=== PATIENT | female | born 1955 ===

== ENCOUNTER 2023-08-29 14:48 | Inpatient (IN) | payer OTHER, MEDICARE ==
[~2023-08-29] VITALS: Wt 88.6 kg
[2023-08-29 15:25] VITALS: BP 161/93; PULSE 97
--- NOTE | 2023-08-29 15:30 | NUR ---
kylie arrived from [facility] awake and alert, sitting up in bed. patient stated the 4mg of morphine (didnt do anything). per patinet she is alergic to "many things" however can take (demerol and fentanyl for pain. Patient states she is having abd pain and does not think she is getting enough ivf. per patient she belives she needs to have an increase in ivf and also needs someting to drink. this rn informed salomon if she allowed the ngtube to be placed it could help decompress her stomach and help with her pain, the patient stated (i know how it works and i dont want that those tubes hurt. patient vss. [facility]
[2023-08-29] MEDS ORDERED: NS 1,000 ML IV SCH (15:45)
[2023-08-29] MEDS ORDERED: Ondansetron 4 MG/2 ML VIAL IV PRN (15:45)
[2023-08-29] MEDS ORDERED: Morphine 4 MG/ML VIAL IV PRN (16:00)
[2023-08-29] MEDS ORDERED: fentaNYL 50 MCG/ML 2 ML VIAL IV PRN (16:00)
[2023-08-29] MEDS ORDERED: Glucagon 1 MG VIAL IM PRN (17:00)
[2023-08-29] MEDS ORDERED: Dextrose 50% Water 25 GM/50 ML SYRINGE IV PRN (17:00)
[2023-08-29] MEDS ORDERED: NS 1,000 ML IV ONE (17:00)
[2023-08-29] MEDS ORDERED: Dextrose (Glucose) 15 GM (4 x 3.75 GM) Chewable TABLET PACK PO PRN (17:00)
[2023-08-29 17:24] LABS: BASO % 0.3 % (0.0-2.0); EOS % 0.2 % (0.0-4.0); GRAN # 12.2 K/mm3 (1.4-6.5); GRAN % 79.2 % (42.2-75.2); HEMATOCRIT 45.3 % (37.0-47.0); HEMOGLOBIN 14.9 g/dl (12.5-16.0); LYMPH # 1.9 K/mm3 (1.2-3.4); LYMPH % 12.2 % (20.0-51.0); MEAN CELL VOLUME 92 fl (80.0-100.0); MEAN CORPUSCULAR HEMOGLOBIN 30 pg (27-31); MEAN CORPUSCULAR HGB CONC 33 g/dl (33.0-37.0); MEAN PLATELET VOLUME 10.4 fl (7.4-10.4); MONO # 1.2 K/mm3 (0.1-0.6); MONO % 7.7 % (1.7-9.3); PLATELET COUNT 275 K/mm3 (130-400); RED BLOOD COUNT 4.93 M/mm3 (4.10-5.30); REDCELL DISTRIBUTION WIDTH-CV 13.2 % (11.5-14.5)
[2023-08-29 17:40] LABS: ALBUMIN 3.5 g/dL (3.4-4.8); BILIRUBIN,TOTAL 0.6 mg/dL (0.2-1.2); CALCIUM 9.3 mg/dL (8.4-10.2); CREATININE, serum 0.79 mg/dL (0.57-1.11); MAGNESIUM 2.1 mg/dL (1.6-2.6); POTASSIUM 3.7 mEq/L (3.5-4.5); TOTAL PROTEIN 6.6 g/dl (6.2-8.1)
[2023-08-29] MEDS ORDERED: Insulin Lispro (HumaLOG) SQ SCH (18:00)
--- NOTE | 2023-08-29 18:12 | NUR ---
RADIOLOGY CALLED AND INFORMED THE SURGICAL DOCTOR WOULD LIKE THE PATIENTS IMAGING TO BE CLODUDED TO OUR SYSTEM. DISC AT NURSES STAION. PER RADIOLOGY WILL BE DONE SOON ABLE.
[2023-08-29] MEDS ORDERED: CREON 120000 U-1 ECC PO ×2 (18:29→18:30)
[2023-08-29] MEDS ORDERED: ALLEGRA 180MG180 MG PO (18:30)
[2023-08-29] MEDS ORDERED: LOPID 600M600 MG/TAB PO (18:31)
[2023-08-29] MEDS ORDERED: LANTUS SOLOS100 U/ML SQ (18:32)
[2023-08-29] MEDS ORDERED: NOVOLIN N100 UNIT/1 SQ (18:32)
[2023-08-29] MEDS ORDERED: NITROSTAT0.4 MG/TAB SL (18:33)
[2023-08-29] MEDS ORDERED: ROBAXIN 75750 MG/TAB PO (18:33)
[2023-08-29] MEDS ORDERED: DITROPAN 5MG TAB5 MG PO (18:34)
[2023-08-29] MEDS ORDERED: LYRICA 25MG CAP25 MG PO (18:34)
[2023-08-29] MEDS ORDERED: ROXICODONE 55 MG/TAB PO (18:34)
--- NOTE | 2023-08-29 18:38 | NUR ---
PER PATIENT MORPHINE DID 0 FOR HER PAIN. IV FENTANYL ADMINISTERED.
--- NOTE | 2023-08-29 18:38 | NUR ---
EVA MILLER CONTACTED. MED LIST UPDATED
[2023-08-29] MEDS ORDERED: Methocarbamol 750 MG TAB PO PRN (18:45)
[2023-08-29 19:34] VITALS: BP 140/83; PULSE 98; TEMP 99.5
--- NOTE | 2023-08-29 20:30 | NUR ---
UPON SHIFT ASSESSMENT PATIENT IN BED AWAKE AND AXO X4. SHE C/O 8/10 EPIGASTRIC PAIN, PRN FENTANYL GIVEN. BOWEL SOUNDS HYPOACTIVE IN UPPER QUADS AND AUDIBLE IN LOWER QUADS. ABDOMEN SOFT AND DISTENDED. BLLE 3+EDEMA. SHIFT ASSESSMENT COMPLETE. VS ARE WNL. CALL LIGHT WITHIN REACH.
--- NOTE | 2023-08-29 20:45 | NUR ---
14 fr NG TUBE PLACED IN RT NARE AT 55CM PERLA, SECURED. PLACEMENT VERIFIED BY CHARGE NURSE SUNI-AUSCULTATED AIR AND GASTRIC CONTENTS 10ML. SET TO LI SUCTION. PATIENT TOLERATING WELL.
[2023-08-29 21:00] VITALS: BP_SYST 174
[2023-08-29] MEDS ORDERED: Pregabalin 25 MG CAP PO SCH (21:00)
[2023-08-29] MEDS ORDERED: Oxybutynin 5 MG TAB PO SCH (21:00)
[2023-08-29 23:00] VITALS: BP 174/98; PULSE 96; TEMP 98.5
[2023-08-30] VITALS (13 sets, daily range): BP systolic 108–174; BP diastolic 63–96; PULSE 87–104; TEMP 98.4–99.3
--- NOTE | 2023-08-30 02:17 | NUR ---
PATIENT C/O 8/10 ABDOMINAL PAIN AND NAUSEA. PRN FENTANYL AND ZOFRAN ADMINISTERED.
--- NOTE | 2023-08-30 03:44 | NUR ---
ROUNDED ON PATIENT. RAINA IS SLEEPING ON RT SIDE. NG TUBE INTACT. VS ARE WNL.
--- NOTE | 2023-08-30 04:47 | NUR ---
PATIENT REQUESTING PAIN MEDS AND ANTI EMETICS OUTSIDE OF PRN AVAILABLE TIMES (EVERY 1-2HRS). VS ARE STABLE, ABDOMEN IN SOFT AND PATIENT IS PASSING GAS. NG TUBE DRAINING MARQUEZ CONTENTS. PATIENT EDUCATION PROVIDED ON RESPIRATORY DISTRESS AND COPIOUS OPIOD ADMINISTERATION. COMPAZINE ADMINISTERED.
--- NOTE | 2023-08-30 05:25 | NUR ---
PATIENT ALLERGY LIST UPDATED. RAINA SELF REPORTS NUMEROUS ALLERGIES/ADVERSE REACTIONS, HOWEVER, CANNOT RECALL SEVERITY OF REACTIONS.
[2023-08-30 06:06] LABS: BASO % 0.2 % (0.0-2.0); EOS % 0.1 % (0.0-4.0); GRAN # 10.7 K/mm3 (1.4-6.5); GRAN % 83.6 % (42.2-75.2); HEMATOCRIT 42.8 % (37.0-47.0); HEMOGLOBIN 14.4 g/dl (12.5-16.0); LYMPH # 1.2 K/mm3 (1.2-3.4); LYMPH % 9.2 % (20.0-51.0); MEAN CELL VOLUME 92 fl (80.0-100.0); MEAN CORPUSCULAR HEMOGLOBIN 31 pg (27-31); MEAN CORPUSCULAR HGB CONC 34 g/dl (33.0-37.0); MEAN PLATELET VOLUME 10.6 fl (7.4-10.4); MONO # 0.8 K/mm3 (0.1-0.6); MONO % 6.5 % (1.7-9.3); PLATELET COUNT 259 K/mm3 (130-400); RED BLOOD COUNT 4.66 M/mm3 (4.10-5.30)
[2023-08-30 06:35] LABS: CALCIUM 8.9 mg/dL (8.4-10.2); CREATININE, serum 0.66 mg/dL (0.57-1.11); POTASSIUM 3.2 mEq/L (3.5-4.5)
[2023-08-30] MEDS ORDERED: NS & 40 mEq KCl 1,000 ML IV SCH (08:45)
--- NOTE | 2023-08-30 09:14 | NUR ---
Patient resting in bed, up to the bathroom to void, steady on her feet. Called out for nausea and pain medication this am. Reports passing flatus at least x1. No active emesis, but is dry heaving especially with activity. Pain in upper abdomen, reported at 8/10. PRETTY to LIS. WHALEN completed this am. PT wroked with patient. LEGAL COUNSEL offered hygiene as did this nurse and was refused. Will continue to monitor
[2023-08-30] MEDS ORDERED: Morphine 4 MG/ML VIAL IV PRN (09:45)
[2023-08-30] MEDS ORDERED: Morphine 4 MG/ML VIAL IV ONE (09:45)
--- NOTE | 2023-08-30 10:42 | NUR ---
and rounded. Plan of care reviewed. Dulcolax Supp. as ordered. Patient continues to rate pain 8/10. Medications as ordered. Constant nausea without emesis. NG to LIS. Will monitor
--- NOTE | 2023-08-30 12:55 | NUR ---
PATIENT CALLED AND TOLD PCT SHE IS HAVING A SEVERE ANXIETY ATTACK AND NEEDS A XANAX NOW. BEDSIDE RN IN WITH ANOTHER PATIENT SO ANOTHER RN CALLED HOSPITALIST & SURGEON WAS ALSO OKAY WITH CLAMPING NG FOR 30 MIN TO GIVE PO MEDS. UPON ENTERING ROOM TO OBSERVE NG OUTPUT, PATIENT WAS COMPLETELY ASLEEP. PROVIDERS UPDATED.
[2023-08-30] MEDS ORDERED: hydrOXYzine HCl 25 MG TAB PO ONE (13:15)
--- NOTE | 2023-08-30 13:51 | NUR ---
Patient called again requesting anxiety medication.Atarax given as ordered and reviewed with patient. Patient reports a nightmare, which is causing the panic attack. Panic attack not new for patient. Did explain that doctor did not want to order xanax. She was okay with different medication, reports she has not taken before, no allergy to medication.
--- NOTE | 2023-08-30 14:18 | NUR ---
NG tube turned back on after medication. SHe reports feeling much better now. Resting without needs. Will monitor
--- NOTE | 2023-08-30 17:58 | NUR ---
Patient resting in bed continues to reports pain 8/10. Upper abdomen, constant. SHe also has nausea without emesis. NG to LIS with minimal output today. Medications as ordered for PRN pain and nausea. Patient has been up to the bathroom voiding adequtely & reports a few small loose BMs. SHe does reports that elevates her pain, having a BM. IV as ordered via Port. Will report off to nightnurse
--- NOTE | 2023-08-30 18:45 | NUR ---
Patient resting in bed, eyes closed, looks comfortable, received report from MOOK Rolle.
--- NOTE | 2023-08-30 19:35 | NUR ---
Patient woke up from her sleep and called with complaints of abdominal pain, PS of 8/10, medicated with fentanyl, denies further needs, will continue to monitor.
--- NOTE | 2023-08-30 20:37 | NUR ---
Patient called again with complaints of nausea, medicated with compazine at this time.
--- NOTE | 2023-08-30 21:15 | NUR ---
Patient assessed at this time, see shift assessment, reports her nausea is a lot better, with NG to LIS, rebekah cath to right chest with NS + 40KCL at 100cc/hr infusing well, BS hypoactive, denies further needs, call light and personal items within reach, will continue to monitor.
--- NOTE | 2023-08-30 22:57 | NUR ---
Patient complained again of pain, PS of 8/10, medicated with fentanyl at this time, will monitor.
[2023-08-31] VITALS (12 sets, daily range): BP systolic 118–158; BP diastolic 71–90; PULSE 77–101; TEMP 98.5–99.6
--- NOTE | 2023-08-31 01:40 | NUR ---
Patient called with complaints of nausea and abdominal pain, PS of 8/10, medicated with zofran and fentanyl at this time, VSS.
--- NOTE | 2023-08-31 07:00 | NUR ---
report recieved from Sepideh DELVALLE. pt resting comfortably in bed, no signs of discomfort. NG to LIS. call light in reach.
--- NOTE | 2023-08-31 08:50 | NUR ---
pt a&ox4 resting in bed, rates pain a 6/10 and denies nausea. vss. bowel sounds are hypoactive. pt reports having x3 loose bowel movements since last night. NG to LIS. port to right chest flushes well w good blood return. INT to right upper arm patent. pt requesting pain medication with nausea meds to be given prior. pt denies other needs at this time. call light in reach.
[2023-08-31 09:06] LABS: BASO % 0.4 % (0.0-2.0); EOS % 0.4 % (0.0-4.0); GRAN # 6.9 K/mm3 (1.4-6.5); GRAN % 71.8 % (42.2-75.2); HEMATOCRIT 38.8 % (37.0-47.0); HEMOGLOBIN 13.1 g/dl (12.5-16.0); LYMPH # 1.8 K/mm3 (1.2-3.4); LYMPH % 18.8 % (20.0-51.0); MEAN CELL VOLUME 91 fl (80.0-100.0); MEAN CORPUSCULAR HEMOGLOBIN 31 pg (27-31); MEAN CORPUSCULAR HGB CONC 34 g/dl (33.0-37.0); MONO # 0.8 K/mm3 (0.1-0.6); MONO % 8.4 % (1.7-9.3); PLATELET COUNT 239 K/mm3 (130-400); RED BLOOD COUNT 4.25 M/mm3 (4.10-5.30); REDCELL DISTRIBUTION WIDTH-CV 12.8 % (11.5-14.5)
[2023-08-31 09:26] LABS: CALCIUM 8.7 mg/dL (8.4-10.2); CREATININE, serum 0.6 mg/dL (0.57-1.11); POTASSIUM 3.5 mEq/L (3.5-4.5)
--- NOTE | 2023-08-31 10:49 | NUR ---
NG clamped by Dr Haas. instructed pt to inform us if she starts to have pain or nausea, pt understands. pt had another loose bowel movement. reports increased pain afterwards and requesting pain medication.
--- NOTE | 2023-08-31 12:18 | NUR ---
pt rates pain a 4/10 after pain medication administration. pt tolerating NG being clamped. no needs at this time.
--- NOTE | 2023-08-31 18:48 | NUR ---
pt reports having a total of 5 loose stools today. pt tolerating clear liquids. no nausea or pain reported. report given to Sepideh DELVALLE.
--- NOTE | 2023-08-31 19:00 | NUR ---
Patient denies nausea or vomiting at this time, pulled the NG tube out and tolerated it, will continue to monitor.
--- NOTE | 2023-08-31 20:24 | NUR ---
Called Dr. Haas at this time and updated him that NG is already pulled out at 1900 and did fine till an hour and a half later patient complained of pain. Received an order to DC the IV fentanyl and morphine. Also received an order to resume her home dose of oxycodone 5mg PRN 5 times a day, will continue to monitor.
[2023-08-31] MEDS ORDERED: oxyCODONE 5 MG TAB PO PRN ×2 (20:30→21:00)
[2023-09-01] VITALS (12 sets, daily range): BP systolic 119–139; BP diastolic 68–85; PULSE 72–83; TEMP 98.2–100
--- NOTE | 2023-09-01 00:23 | NUR ---
Called Farzana, the DELI MANAGER and made her aware that patient is already on clears, received an order to change the accucheck to achs.
--- NOTE | 2023-09-01 00:54 | NUR ---
Patient complained of pain to her abdomen, PS of 7/10, medicated with oxycodone, denies further needs.
[2023-09-01 06:29] LABS: BASO % 0.4 % (0.0-2.0); EOS # 0.1 K/mm3 (0.0-0.7); EOS % 1.5 % (0.0-4.0); GRAN # 5.3 K/mm3 (1.4-6.5); GRAN % 72.3 % (42.2-75.2); HEMATOCRIT 38.5 % (37.0-47.0); HEMOGLOBIN 13.3 g/dl (12.5-16.0); LYMPH # 1.3 K/mm3 (1.2-3.4); LYMPH % 17.3 % (20.0-51.0); MEAN CELL VOLUME 92 fl (80.0-100.0); MEAN CORPUSCULAR HEMOGLOBIN 32 pg (27-31); MEAN CORPUSCULAR HGB CONC 35 g/dl (33.0-37.0); MEAN PLATELET VOLUME 10.5 fl (7.4-10.4); MONO # 0.6 K/mm3 (0.1-0.6); MONO % 8.4 % (1.7-9.3); PLATELET COUNT 219 K/mm3 (130-400); REDCELL DISTRIBUTION WIDTH-CV 12.7 % (11.5-14.5)
[2023-09-01 07:08] LABS: CALCIUM 9.1 mg/dL (8.4-10.2); CREATININE, serum 0.62 mg/dL (0.57-1.11); POTASSIUM 3.8 mEq/L (3.5-4.5)
[2023-09-01] MEDS ORDERED: Insulin Lispro (HumaLOG) SQ SCH (08:00)
--- NOTE | 2023-09-01 08:36 | NUR ---
Patient resting in bed. In better spirits today. Reports chronic nausea. but overall improved. Pain 05/20. Patient back on her home regiment of medications. Hot tea provided. Update given to . Xavi mathew
--- NOTE | 2023-09-01 09:29 | NUR ---
psychotherapist social worker met with pt to discuss discharge planning. She reports to live alone in [place]. She sees Dr. Rae with the [facility] and obtains medications from there with no issues. She reports to also have Medicare A and B. She reports her contact as her daughter, Katelyn Castro [phone]. She states she has a DPOA-HC at home listing her daughter as primary, then her son. She states they both live in [place]. She states she obtains help from [facility] for bathing and housekeeping through the [place]. She does not use any DME. Pt reports she will need a ride home. SW advised if she has any friends nearby to assist. Pt objected to this and reports "they work." SW attempted to inform her they can wait until people are off work as this is common. Pt reports she has gotten assistance from the [place] with MINDY Abebe on transportation. She states "I am going to be here a few days." No further needs. MINDY left vm to [facility] MINDY Summers to discuss pt needs and resources. Discharge Plan: home with continued services
[2023-09-01] MEDS ORDERED: MUCUS RELIEF200 MG PO (09:45)
[2023-09-01] MEDS ORDERED: XANAX 0.5MG0.5 MG PO (09:45)
[2023-09-01] MEDS ORDERED: CALCIUM 600 PLU1 TAB PO (09:47)
[2023-09-01] MEDS ORDERED: B-121000 MCG PO (09:47)
[2023-09-01] MEDS ORDERED: ZOFRAN8 MG PO (09:48)
[2023-09-01] MEDS ORDERED: AFRIN 15 ML15 ML NS (09:48)
--- NOTE | 2023-09-01 10:29 | NUR ---
Patient resting in bed. Just worked with OT. Reports she is having her normal chronic nausea and pain. Medication as requested. Xavi mathew
--- NOTE | 2023-09-01 13:20 | NUR ---
ornamental ironworker received a call back from [place] MINDY Aebbe. She confirmed pt utilizes services from [facility] for bathing and housekeeping. Mis states they have helped pt with transportation to/from appointments in the past, but they have decreased their funding and cannot guarantee this moving forward. MINDY states she will inform pt upon discharge as pt was going to call her to discuss. Mis verbalized understanding and would like to be updated on discharge. Discharge Plan: home with continued services
--- NOTE | 2023-09-01 19:25 | NUR ---
Patient resting in bed. She has been up in chair today. Independent to the bathroom with a few loose stools. Port to INT. Medciation PRN as request for nausea and pain. Patient has not had emesis. Minimal PO intake. Report is being to sweet and sour. Fluids encouraged. Bedside report to benny Arteaga
--- NOTE | 2023-09-01 19:30 | NUR ---
PT A&O X4 LAYING IN BED. VSS. HS MEDS GIVEN & SHIFT ASSESSMENT COMPLETE. PT RATING ABD PAIN 07/20, GAVE PRN OXYCODONE PER PT REQUEST. STATES SHE DOES HAVE SOME N/V BUT REPORTS THIS IS NOT NEW, PRN ZOFRAN GIVE BY DAYSHIFT. PT REPORTS PASSING GAS. DENYING OTHER NEEDS. CALL LIGHT IN REACH
[2023-09-02] VITALS (13 sets, daily range): BP systolic 129–155; BP diastolic 62–89; PULSE 74–109; TEMP 98.4–99.3
[2023-09-02 05:43] LABS: BASO % 0.5 % (0.0-2.0); EOS # 0.1 K/mm3 (0.0-0.7); EOS % 0.9 % (0.0-4.0); GRAN # 5.5 K/mm3 (1.4-6.5); GRAN % 67.3 % (42.2-75.2); HEMOGLOBIN 13.8 g/dl (12.5-16.0); LYMPH # 1.8 K/mm3 (1.2-3.4); LYMPH % 22.5 % (20.0-51.0); MEAN CELL VOLUME 91 fl (80.0-100.0); MEAN CORPUSCULAR HEMOGLOBIN 31 pg (27-31); MEAN CORPUSCULAR HGB CONC 34 g/dl (33.0-37.0); MEAN PLATELET VOLUME 11.2 fl (7.4-10.4); MONO # 0.7 K/mm3 (0.1-0.6); MONO % 8.6 % (1.7-9.3); PLATELET COUNT 276 K/mm3 (130-400); REDCELL DISTRIBUTION WIDTH-CV 12.5 % (11.5-14.5)
--- NOTE | 2023-09-02 05:51 | NUR ---
PT AWAKE LAYING IN BED. PAIN & NAUSEA CONTROLLED THROUGHOUT THE NIGHT WITH PRN'S PER APR. PT HAS BEEN AMBULATING HALLS INDEPENDENTLY. DENYING FURTHER NEEDS THIS MORNING. CALL LIGHT IN REACH
[2023-09-02 06:00] LABS: CALCIUM 10.1 mg/dL (8.4-10.2); CREATININE, serum 0.77 mg/dL (0.57-1.11); POTASSIUM 3.3 mEq/L (3.5-4.5)
--- NOTE | 2023-09-02 09:15 | NUR ---
Pt. sitting up at bedside eating breakfast. Pt. is A&OX3, assessment complete. Port to Rt. chest noted. Pt. reported pain see pain scale, gave meds per orders. Pt. denies further needs, call light within reach.
--- NOTE | 2023-09-02 12:39 | NUR ---
pick pack worker attended clinical rounding and was informed pt can potentially discharge within the day or tomorrow. SW met with pt and completed IM from Medicare. Pt signed and verbalized understanding. Copy provided and original in chart. SW informed pt she spoke with [place] SW who reports being unable to provide transportation. SW informed her to speak with any friends who can provide transportation. She reports needing to speak with the Dr. then she will reach out to them. Discharge Plan: home with services
--- NOTE | 2023-09-02 19:55 | NUR ---
report received from fanny dela cruz. pt resting in bed watching tv. pt continues eating dinner slowly. pt denies pain. call light in reach. all needs met at this time.
--- NOTE | 2023-09-02 22:42 | NUR ---
shift assessment complete, see documentation. pt tolerated hs meds well. pt reporting back pain. prn robaxin administered per orders at 2135. pt now c/o abd pain rated 7/10, prn oxycodone administered per orders. call light in reach. all needs met at this time.
--- NOTE | 2023-09-02 23:44 | NUR ---
update from Dr Reyes (radiology) stating imaging showed an Ileus/SBO. updated air pollution engineer Dr Hernandez. continue with plan of care per air pollution engineer doc.
[2023-09-03] VITALS (7 sets, daily range): BP systolic 123–163; BP diastolic 74–92; PULSE 76–92; TEMP 98.8–99
--- NOTE | 2023-09-03 02:34 | NUR ---
pt reporting increased abd pain rated 7/10. prn oxycodone administered per orders.
--- NOTE | 2023-09-03 06:09 | NUR ---
pt reporting 7/10 abd pain and requesting muscle relaxer. prn robaxin administered per order. pt also reporting nausea. prn zofran administered per orders.
--- NOTE | 2023-09-03 07:35 | NUR ---
pt a&ox3 resting in bed. vss. pt requesting pain medication and rating pain a 6/10. denies nausea. bowel sounds are active. pt reports having an appetite this morning and waiting on breakfast. no other needs at this time. call light in reach.
[2023-09-03] MEDS ORDERED: Polyethylene Glycol 3350 17 GM PDS PO SCH (11:00)
[2023-09-03] MEDS ORDERED: Sennosides/Docusate 8.6-50 MG TAB PO SCH (12:00)
--- NOTE | 2023-09-03 12:34 | NUR ---
pt reports pain and nausea after getting up for the restroom. nausea and pain medications given per emar. pt interested in eating food, lunch ordered. encouraged pt to ambulate in the halls after lunch to help with bowel function.
[2023-09-03] MEDS ORDERED: MIRALAX PA17 GM/Dose PO (14:50)
[2023-09-03] MEDS ORDERED: SENEXON-S 50-81 EACH PO (14:50)
--- NOTE | 2023-09-03 15:11 | NUR ---
social worker aide was informed by MOOK Carmen that pt can now discharge. SW was informd pt needs a ride and her friends were unable to do so. SW set up an Uber for 4pm per RN request. Discharge Plan: home with services
--- NOTE | 2023-09-03 15:58 | NUR ---
right chest port deactivated, flushed with heparin per emar order. discharge instructions given to pt, all questions answered. social work set up uber ride for patient to discharge home.
== END 2023-09-03 15:59 | disposition home or self-care (01) | DRG 389 ==
LOC: SURG 14:48
PROVIDERS: Physician Assistant; ADMIT Internal Medicine
DX: K56.609 Unspecified intestinal obstruction, unspecified as to partial versus complete obstruction (principal); E87.1 Hypo-osmolality and hyponatremia; F11.20 Opioid dependence, uncomplicated; K86.1 Other chronic pancreatitis; D72.829 Elevated white blood cell count, unspecified; F43.10 Post-traumatic stress disorder, unspecified; E11.9 Type 2 diabetes mellitus without complications; G89.4 Chronic pain syndrome; K75.9 Inflammatory liver disease, unspecified; M54.9 Dorsalgia, unspecified; Z90.49 Acquired absence of other specified parts of digestive tract; Z90.710 Acquired absence of both cervix and uterus; Z98.51 Tubal ligation status; Z79.4 Long term (current) use of insulin; Z79.899 Other long term (current) drug therapy; Z88.5 Allergy status to narcotic agent; Z88.0 Allergy status to penicillin; Z88.8 Allergy status to other drugs, medicaments and biological substances; Z88.6 Allergy status to analgesic agent; Z91.041 Radiographic dye allergy status
CPT/HCPCS: J0780; J1644; J1650; J1815; J2270; J2405; J3010; J3480; J7030